=== PATIENT | male | born 1990 | race Caucasian/White ===

== ENCOUNTER 2018-06-10 21:44 | Emergency (ER) | payer SELFPAY ==
[~2018-06-10] VITALS: Ht 165.1 cm; Wt 68.0 kg
--- NOTE | ~2018-06-10 | EKG ---
[place], [place] ELECTROCARDIOGRAM REPORT NAME: JANI CHA UNIT #: [id number] ROOM: DOCTOR: EPIPHANY DRAFT REPORT BIRTHDATE: [birth year] [facility] Test Date: 2018-06-10 Test Time: 22:05:39 Pat Name: JANI CHA Department: ER Room: Gender: M Strap Buckler: : 1990 Requested By: OFELIA VALENZUELA Order Number: [id number] Reading MD: Zoraida Hansen MD Measurements Intervals Riva Rate: 70 P: 38 CT: 146 QRS: 78 QRSD: 91 T: 47 QT: 333 QTc: 360 Interpretive Statements Sinus arrhythmia ST elev, probable normal early repol pattern Electronically Signed On 06-12-2018 9:35:10 PDT by Zoraida Hansen MD CM:EKGRPT:ELECTROCARDIOGRAM REPORT [id number] OFELIA VALENZUELA MD EPIPHANY DRAFT REPORT OFELIA VALENZUELA MD
[~2018-06-10 21:44] MED LIST: AMOXICILLIN500 M3 PO; CLINDAMYCIN HC300 MG PO; ULTRAM50 MG PO
[2018-06-10 22:04] LABS: BASO # 0.1 10*3/uL (0.0-0.1); BASO % 0.8 % (0.0-1.0); EOS # 0.1 10*3/uL (0.0-0.4); HEMATOCRIT 43.6 % (42.0-52.0); LYMPH # 2.4 10*3/uL (1.3-4.4); LYMPH % 25.7 % (27.0-41.0); MEAN CORPUSCULAR HGB 32.7 pg (27.0-31.0); MEAN CORPUSCULAR HGB CONC 34.4 g/dl (33.0-37.0); MEAN PLATELET VOLUME 10.2 fl (9.6-12.3); MONO # 0.6 10*3/uL (0.1-1.0); MONO % 6.2 % (3.0-9.0); NEUT # 6.2 10*3/uL (2.3-7.9); PLATELET COUNT AUTOMATED 247 10*3/uL (130-400); RED BLOOD COUNT 4.59 10*6/uL (4.50-5.90); RED CELL DISTRI WIDTH 12.8 % (0-14.5); WHITE BLOOD COUNT 9.3 10*3/uL (4.8-10.8)
[2018-06-10 22:15] LABS: ACT PARTIAL THROMBO TIME 23.5 SECONDS (20.8-31.5)
[2018-06-10 22:22] LABS: ALBUMIN 4.1 gm/dl (3.1-4.5); ALKALINE PHOSPHATASE 132 U/L (45-117); BUN 18 mg/dl (7-24); CHLORIDE 108 mmol/L (98-107); CREATININE 1.13 mg/dL (0.70-1.30); POTASSIUM 3.7 mmol/L (3.5-5.1); SGOT/AST 14 IU/L (3-35); SGPT/ALT 23 U/L (12-78); SODIUM 142 mmol/L (136-145); TOTAL PROTEIN 7.7 gm/dL (6.4-8.2)
[2018-06-10 22:23] LABS: TROPONIN I < 0.015 ng/ml (<0.045)
[2018-06-10] MEDS ORDERED: Motrin,Rufen800 MG PO (23:45)
== END 2018-06-10 23:59 | disposition home or self-care (01) ==
LOC: ED 21:44
PROVIDERS: Emergency Medicine Emergency Medical Services
DX: R07.89 Other chest pain (principal)

== ENCOUNTER 2020-08-02 22:31 | Emergency (ER) | payer BC ==
[~2020-08-02] VITALS: Ht 167.6 cm; Wt 68.0 kg
[~2020-08-02 22:31] MED LIST changes: +Motrin,Rufen800 MG PO
== END 2020-08-03 05:05 | disposition home or self-care (01) ==
LOC: ED 22:31
DX: S00.83XA Contusion of other part of head, initial encounter (principal); G93.0 Cerebral cysts; Y04.0XXA Assault by unarmed brawl or fight, initial encounter; Y93.89 Activity, other specified; Y92.89 Other specified places as the place of occurrence of the external cause; Y99.9 Unspecified external cause status

== ENCOUNTER 2021-04-01 20:21 | Emergency (ER) | payer SELFPAY ==
[~2021-04-01] VITALS: Ht 165.1 cm; Wt 56.7 kg
[2021-04-01] MEDS ORDERED: PREDNISONE50 MG PO (20:56)
[2021-04-01] MEDS ORDERED: CYCLOBENZAPRINE10 MG PO (20:56)
== END 2021-04-01 21:25 | disposition home or self-care (01) ==
LOC: ED 20:21
DX: R07.81 Pleurodynia (principal); R10.11 Right upper quadrant pain; R00.2 Palpitations

== ENCOUNTER 2022-02-12 13:58 | Emergency (ER) | payer SELFPAY ==
[~2022-02-12] VITALS: Ht 165.1 cm; Wt 59.0 kg
[~2022-02-12 13:58] MED LIST changes: +CYCLOBENZAPRINE10 MG PO; +PREDNISONE50 MG PO
[2022-02-12] MEDS ORDERED: PREDNISONE20 M1 PO (16:49)
[2022-02-12] MEDS ORDERED: CYCLOBENZAPRINE5 M3 PO (16:49)
== END 2022-02-12 17:23 | disposition home or self-care (01) ==
LOC: ED 13:58
DX: M25.512 Pain in left shoulder (principal)

== ENCOUNTER 2022-09-20 12:55 | Emergency (ER) | payer SELFPAY ==
[~2022-09-20] VITALS: Ht 165.1 cm; Wt 59.0 kg
[~2022-09-20 12:55] MED LIST changes: +CYCLOBENZAPRINE5 M3 PO; +PREDNISONE20 M1 PO
[2022-09-20] MEDS ORDERED: CIPROFLOXACIN H10 ML OD (15:43)
[2022-09-21] MEDS ORDERED: TRAMADOL HCL50 MG PO (13:10)
== END 2022-09-20 15:50 | disposition home or self-care (01) ==
LOC: ED 12:55
DX: H11.31 Conjunctival hemorrhage, right eye (principal)

== ENCOUNTER 2022-09-21 12:06 | Emergency (ER) | payer SELFPAY ==
[~2022-09-21] VITALS: Ht 165.1 cm; Wt 59.0 kg
[~2022-09-21 12:06] MED LIST changes: +CIPROFLOXACIN H10 ML OD
[2022-09-21] MEDS ORDERED: TRAMADOL HCL50 MG PO (13:10)
== END 2022-09-21 13:17 | disposition home or self-care (01) ==
LOC: ED 12:06
DX: B30.3 Acute epidemic hemorrhagic conjunctivitis (enteroviral) (principal); H57.11 Ocular pain, right eye; F17.200 Nicotine dependence, unspecified, uncomplicated

== ENCOUNTER 2024-05-14 16:28 | Inpatient (IN) | payer MEDICAID ==
[~2024-05-14] VITALS: Ht 165.1 cm; Wt 62.4 kg
[~2024-05-14 16:28] MED LIST changes: +TRAMADOL HCL50 MG PO
[2024-05-14] MEDS ORDERED: Ketorolac Tromethamine 30 MG/ML VIAL IV ONE (16:30)
[2024-05-14] MEDS ORDERED: SODIUM CHLORIDE 0.9% 1,000 ML IV ONE ×2 (16:30→19:05)
[2024-05-14 16:31] VITALS: BP 148/81
[2024-05-14] MEDS ORDERED: TRINTELLIX20 MG PO (16:34)
[2024-05-14] MEDS ORDERED: IOHEXOL 300 MG/ML 100 ML VIAL IV ONE (16:35)
[2024-05-14 16:50] LABS: HEMATOCRIT 48.7 % (42.0-52.0); MEAN CELL VOLUME 88.4 fl (80.0-94.0); MEAN CORPUSCULAR HGB 31.6 pg (27.0-31.0); MEAN CORPUSCULAR HGB CONC 35.7 g/dl (33.0-37.0); MEAN PLATELET VOLUME 9.8 fl (9.6-12.3); PLATELET COUNT AUTOMATED 353 10*3/uL (130-400); RED BLOOD COUNT 5.51 10*6/uL (4.50-5.90); RED CELL DISTRI WIDTH 12.5 % (0-14.5); WHITE BLOOD COUNT 24.1 10*3/uL (4.8-10.8)
[2024-05-14 16:55] LABS: MANUAL DIFF REFLEX YES
[2024-05-14 17:09] LABS: BURR CELLS FEW; OVALOCYTES FEW; PLATELET SUFFICIENCY NORMAL (NORMAL); TOTAL CELLS COUNTED 100 #CELLS
[2024-05-14 17:26] LABS: ALKALINE PHOSPHATASE 138 U/L (46-116); BUN 39 mg/dl (9-23); CHLORIDE 95 mmol/L (98-107); LIPASE 31 U/L (12-53); POTASSIUM 4.2 mmol/L (3.4-5.1); SGPT/ALT 18 U/L (5-49); TOTAL PROTEIN 9.4 gm/dL (6.0-8.0)
[2024-05-14 18:13] LABS: BILIRUBIN 2+ (Negative); BLOOD 1+ (Negative); CLARITY Cloudy (Clear); COLOR Dark Yellow (Yellow); GLUCOSE Negative (Negative); KETONE 2+ (Negative); LEUKO ESTERASE Negative (Negative); NITRITE Negative (Negative); SPECIFIC GRAVITY >= 1.030 (1.001-1.030)
[2024-05-14 18:23] LABS: URINE AMPHETAMINES Negative (1000ng/ml); URINE BARBITURATES Negative (200ng/ml); URINE BENZODIAZEPINES Negative (200ng/ml); URINE CANNABINOIDS (THC) Positive (50ng/ml); URINE COCAINE Negative (300ng/ml); URINE METHADONE Negative (300ng/ml); URINE OPIATES Negative (300ng/ml); URINE PHENCYCLIDINE Negative (25ng/ml)
[2024-05-14 18:24] LABS: BACTERIA 1+; MUCOUS 2+
[2024-05-14 18:25] LABS: HYALINE CAST 51-100
[2024-05-14] MEDS ORDERED: SODIUM CHLORIDE 0.9% 1,000 ML IV SCH (18:30)
[2024-05-14] MEDS ORDERED: BISACODYL 10 MG SUPP R PRN (18:55)
[2024-05-14] MEDS ORDERED: Magnesium Hydroxide 30 ML UDC PO PRN (18:55)
[2024-05-14] MEDS ORDERED: Acetaminophen/Hydrocodone 5 MG/325 MG TABLET PO PRN (18:55)
[2024-05-14] MEDS ORDERED: BISACODYL 5 MG TAB PO PRN (18:55)
[2024-05-14] MEDS ORDERED: MORPHINE Sulfate 2 MG/ML SYR IV PRN (18:55)
[2024-05-14] MEDS ORDERED: ACETAMINOPHEN 325 MG TAB PO PRN (18:55)
[2024-05-14] MEDS ORDERED: Ondansetron Hydrochloride 4 MG/2 ML VIAL IV PRN (18:55)
[2024-05-14] MEDS ORDERED: ACETAMINOPHEN 650 MG SUPP R PRN (18:55)
[2024-05-14 20:00] VITALS: BP 145/79
[2024-05-14 21:04] VITALS: BP 127/81
[2024-05-14] MEDS ORDERED: CIPROFLOXACIN 200 ML IV SCH (22:00)
[2024-05-14] MEDS ORDERED: metroNIDAZOLE 100 ML IV SCH (22:00)
[2024-05-15] VITALS: BP 111/69; BP 127/81
[2024-05-15 04:00] VITALS: BP 116/67
[2024-05-15 06:40] LABS: ACT PARTIAL THROMBO TIME 27.7 SECONDS (20.0-32.1)
[2024-05-15 06:41] LABS: BASO % 0.3 % (0.0-1.0); EOS % 0.3 % (1.0-4.0); HEMATOCRIT 37.8 % (42.0-52.0); MEAN CORPUSCULAR HGB 31.5 pg (27.0-31.0); MEAN CORPUSCULAR HGB CONC 34.1 g/dl (33.0-37.0); MONO % 8.2 % (3.0-9.0); NEUT % 67.5 % (47.0-73.0); RED BLOOD COUNT 4.09 10*6/uL (4.50-5.90); RED CELL DISTRI WIDTH 12.6 % (0-14.5); WHITE BLOOD COUNT 11.9 10*3/uL (4.8-10.8)
[2024-05-15 07:19] LABS: ALKALINE PHOSPHATASE 92 U/L (46-116); CHLORIDE 102 mmol/L (98-107); CHOLESTEROL 260 mg/dL (<200); FREE T4 1.46 ng/dl (0.89-1.76); LDL CHOLESTEROL 208 mg/dL (9-159); POTASSIUM 3.5 mmol/L (3.4-5.1); SGPT/ALT 11 U/L (5-49); TOTAL PROTEIN 6.6 gm/dL (6.0-8.0); TRIGLYCERIDES 89 mg/dl (<150)
[2024-05-15 07:29] LABS: MEAN CELL VOLUME 92.4 fl (80.0-94.0); PLATELET COUNT AUTOMATED 243 10*3/uL (130-400)
[2024-05-15 07:44] LABS: BUN 25 mg/dl (9-23)
[2024-05-15 08:00] VITALS: BP 117/68
[2024-05-15] MEDS ORDERED: VORTIOXETINE HYDROBROMIDE 20 MG TAB PO SCH (10:00)
[2024-05-15] MEDS ORDERED: Enoxaparin Sodium 40 MG/0.4 ML SYR SC SCH (10:00)
[2024-05-15 12:00] VITALS: BP 113/47
[2024-05-15] MEDS ORDERED: Ketorolac Tromethamine 30 MG/ML VIAL IV ONE (12:05)
[2024-05-15 16:00] VITALS: BP 110/73
[2024-05-15 20:00] VITALS: BP 112/60
[2024-05-16] VITALS: BP 107/47; BP 112/60
[2024-05-16 04:00] VITALS: BP 107/50
[2024-05-16 06:12] LABS: BASO # 0.1 10*3/uL (0.0-0.1); BASO % 0.8 % (0.0-1.0); EOS # 0.1 10*3/uL (0.0-0.4); EOS % 1.1 % (1.0-4.0); HEMATOCRIT 37.4 % (42.0-52.0); MEAN CELL VOLUME 92.3 fl (80.0-94.0); MEAN CORPUSCULAR HGB 31.4 pg (27.0-31.0); MEAN PLATELET VOLUME 9.9 fl (9.6-12.3); MONO # 0.7 10*3/uL (0.1-1.0); MONO % 8.5 % (3.0-9.0); NEUT # 4.3 10*3/uL (2.3-7.9); NEUT % 51.1 % (47.0-73.0); PLATELET COUNT AUTOMATED 220 10*3/uL (130-400); RED BLOOD COUNT 4.05 10*6/uL (4.50-5.90); RED CELL DISTRI WIDTH 12.7 % (0-14.5); WHITE BLOOD COUNT 8.4 10*3/uL (4.8-10.8)
[2024-05-16 08:00] VITALS: BP 112/68
[2024-05-16] MEDS ORDERED: Metoclopramide Hydrochloride 10 MG/2 ML VIAL IV ONE (10:05)
[2024-05-16] MEDS ORDERED: FAMOTIDINE 50 ML IV ONE (10:05)
[2024-05-16 12:00] VITALS: BP 129/73
[2024-05-16 16:00] VITALS: BP 141/90
[2024-05-16] MEDS ORDERED: Scopolamine 1 PATCH PATCH T SCH (16:30)
[2024-05-16] MEDS ORDERED: Pantoprazole Sodium 40 MG VIAL IV SCH (18:00)
[2024-05-16] MEDS ORDERED: Nicotine 14 MG PATCH T SCH (18:00)
[2024-05-16 20:00] VITALS: BP 132/73
[2024-05-17] VITALS: BP 120/81
[2024-05-17 08:00] VITALS: BP 106/68
[2024-05-17] MEDS ORDERED: Nicotine 14 MG PATCH T SCH (10:00)
[2024-05-17 12:00] VITALS: BP 116/77
[2024-05-17] MEDS ORDERED: NICODERM CQ1 EAC1 T (14:41)
[2024-05-17] MEDS ORDERED: AMOX-CLAV 875-1 EACH PO (14:41)
[2024-05-17] MEDS ORDERED: ONDANSETRON HYDR4 MG PO (14:43)
== END 2024-05-17 16:23 | disposition home or self-care (01) | DRG 720 ==
LOC: ED 16:28 → 5E 18:48 → EDHOLD 18:48 → 5E 20:07
PROVIDERS: Physician Assistant Medical; Student in an Organized Health Care Education/Training Program; ADMIT Internal Medicine; ATTEND Internal Medicine
DX: A41.9 Sepsis, unspecified organism (principal); N17.0 Acute kidney failure with tubular necrosis; E88.09 Other disorders of plasma-protein metabolism, not elsewhere classified; A04.9 Bacterial intestinal infection, unspecified; E86.0 Dehydration; E83.52 Hypercalcemia; R73.9 Hyperglycemia, unspecified; F17.210 Nicotine dependence, cigarettes, uncomplicated; Z82.49 Family history of ischemic heart disease and other diseases of the circulatory system; Z79.899 Other long term (current) drug therapy